=== PATIENT | male | born 1990 | race Caucasian/White ===

== ENCOUNTER → 2017-12-14 | Outpatient (REF) ==
[~2017-12-14] MED LIST: AMOXICILLIN 8751 TAB PO; CEPHALEXIN500 M1 PO; NO HOME MEDICATIONS; NORCO 325 MG-51 TAB PO; PERCOCET 325 MG1 TA2 PO
== END ==
LOC: ZLAB.WCH 14:16
DX: Z01.89 Encounter for other specified special examinations (principal)

== ENCOUNTER → 2018-01-24 | Outpatient (REF) | LOC: ZLAB.WCH 15:30 | PROVIDERS: Physician Assistant | DX: Z01.89 Encounter for other specified special examinations (principal) ==

== ENCOUNTER → 2018-01-30 | Outpatient (REF) | LOC: ZLAB.WCH 15:55 | DX: Z01.89 Encounter for other specified special examinations (principal) ==

== ENCOUNTER → 2018-04-17 | Outpatient (CLI) | payer SELFPAY | LOC: MHCPAIN 15:11 | DX: G89.29 Other chronic pain (principal); M54.14 Radiculopathy, thoracic region; M47.814 Spondylosis without myelopathy or radiculopathy, thoracic region | CPT/HCPCS: G0463 ==

== ENCOUNTER 2022-02-28 19:23 | Emergency (ER) | payer SELFPAY ==
[~2022-02-28] VITALS: Ht 180.3 cm; Wt 86.4 kg
[2022-02-28 19:25] VITALS: TEMP 98.5
[2022-02-28] MEDS ORDERED: DOXYCYCLINE 10100 MG PO (19:35)
[2022-02-28 19:54] VITALS: BP 134/68; PULSE 96
[2022-02-28 19:56] LABS: COLLECTION METHOD CLEAN CATCH
[2022-02-28 20:04] LABS: MUCOUS Present (NOT PRESENT); PH 5 (5-8); SQUAMOUS EPITHELIAL 0-2 /hpf (0-10); URINE APPEARANCE Cloudy (CLEAR/HAZY); URINE BACTERIA Rare /hpf (NONE SEEN); URINE BILIRUBIN Negative (NEGATIVE); URINE BLOOD 1+ (NEGATIVE); URINE COLOR Yellow (YELLOW); URINE GLUCOSE Negative (NEGATIVE); URINE KETONE Negative (NEGATIVE); URINE LEUKOCYTE ESTERASE 3+ (NEGATIVE); URINE NITRATE Negative (NEGATIVE); URINE PROTEIN(semi-quant) 1+ (NEGATIVE); URINE UROBILINOGEN Negative (NEGATIVE)
== END 2022-02-28 19:54 | disposition home or self-care (01) ==
LOC: COL.ER 19:23
PROVIDERS: Emergency Medicine
DX: N34.2 Other urethritis (principal); Z28.310 Unvaccinated for COVID-19
CPT/HCPCS: J0696